=== PATIENT | female | born 1945 | race African-American/Black ===

== ENCOUNTER 2021-11-07 18:00 | Inpatient (IN) | payer BC, MEDICARE ==
[2021-11-07] MEDS ORDERED: Dextrose 50% Abboject 50 ML SYRINGE SLOW IVP PRN (19:09)
[2021-11-07] MEDS ORDERED: HumaLOG 300 UNITS/3 ML VIAL SC PRN (19:09)
[2021-11-07] MEDS ORDERED: hydrALAZINE 20 MG/ML VIAL SLOW IVP PRN (19:18)
[2021-11-07] MEDS ORDERED: Lisinopril 10 MG TAB PO SCH (19:30)
[2021-11-07] MEDS ORDERED: Polyethylene Glycol 3350 17 GM Packet PO SCH (19:45)
[2021-11-07] MEDS: Atorvastatin Calcium 40 MG TAB PO SCH (21:41)
[2021-11-08] MEDS: HumaLOG 300 UNITS/3 ML VIAL SC PRN ×2 (07:29→12:56)
[2021-11-08] MEDS: Polyethylene Glycol 3350 17 GM Packet PO SCH (08:17)
[2021-11-08] MEDS: Enoxaparin Sodium 40 MG/0.4 ML SYRINGE SC SCH (08:18)
[2021-11-08] MEDS: Amlodipine 5 MG TAB PO SCH (08:19)
[2021-11-08] MEDS: Aspirin 325 MG TAB PO SCH (08:20)
[2021-11-08] MEDS: Famotidine 20 MG TAB PO SCH (08:20)
[2021-11-08] MEDS: Lisinopril 10 MG TAB PO SCH (08:20)
[2021-11-08] MEDS: metFORMIN 500 MG TAB PO SCH ×2 (08:20→17:46)
[2021-11-08] MEDS: glipiZIDE 5 MG TAB PO SCH (08:21)
[2021-11-08] MEDS: Atorvastatin Calcium 40 MG TAB PO SCH (20:47)
[2021-11-09] MEDS: Amlodipine 5 MG TAB PO SCH (09:13)
[2021-11-09] MEDS: Famotidine 20 MG TAB PO SCH (09:13)
[2021-11-09] MEDS: Aspirin 325 MG TAB PO SCH (09:13)
[2021-11-09] MEDS: Enoxaparin Sodium 40 MG/0.4 ML SYRINGE SC SCH (09:14)
[2021-11-09] MEDS: glipiZIDE 5 MG TAB PO SCH (09:14)
[2021-11-09] MEDS: Polyethylene Glycol 3350 17 GM Packet PO SCH (09:14)
[2021-11-09] MEDS: metFORMIN 500 MG TAB PO SCH ×2 (09:14→17:28)
[2021-11-09] MEDS: Lisinopril 10 MG TAB PO SCH (09:14)
[2021-11-09] MEDS: HumaLOG 300 UNITS/3 ML VIAL SC PRN ×2 (12:29→17:28)
[2021-11-09 20:14] LABS: SARS-CoV-2 PCR by NAA Not Detected (NotDetected)
[2021-11-09] MEDS: Atorvastatin Calcium 40 MG TAB PO SCH (21:06)
[2021-11-10] MEDS: metFORMIN 500 MG TAB PO SCH ×2 (08:43→17:40)
[2021-11-10] MEDS: Famotidine 20 MG TAB PO SCH (08:43)
[2021-11-10] MEDS: Aspirin 81 mg Enteric Coated Tablet PO SCH (08:43)
[2021-11-10] MEDS: glipiZIDE 5 MG TAB PO SCH (08:43)
[2021-11-10] MEDS: Lisinopril 10 MG TAB PO SCH (08:44)
[2021-11-10] MEDS: Enoxaparin Sodium 40 MG/0.4 ML SYRINGE SC SCH (08:44)
[2021-11-10] MEDS: Amlodipine 5 MG TAB PO SCH (08:44)
[2021-11-10] MEDS: Polyethylene Glycol 3350 17 GM Packet PO SCH (08:45)
[2021-11-10] MEDS: HumaLOG 300 UNITS/3 ML VIAL SC PRN (12:22)
[2021-11-10] MEDS: Atorvastatin Calcium 40 MG TAB PO SCH (20:49)
[2021-11-11] MEDS: Polyethylene Glycol 3350 17 GM Packet PO SCH (08:27)
[2021-11-11] MEDS: Famotidine 20 MG TAB PO SCH (08:28)
[2021-11-11] MEDS: Enoxaparin Sodium 40 MG/0.4 ML SYRINGE SC SCH (08:28)
[2021-11-11] MEDS: metFORMIN 500 MG TAB PO SCH ×2 (08:28→17:49)
[2021-11-11] MEDS: Lisinopril 20 MG TAB PO SCH (08:29)
[2021-11-11] MEDS: Amlodipine 5 MG TAB PO SCH (08:29)
[2021-11-11] MEDS: glipiZIDE 5 MG TAB PO SCH (08:29)
[2021-11-11] MEDS: Aspirin 81 mg Enteric Coated Tablet PO SCH (08:29)
[2021-11-11] MEDS: HumaLOG 300 UNITS/3 ML VIAL SC PRN (12:36)
[2021-11-11] MEDS: Atorvastatin Calcium 40 MG TAB PO SCH (20:43)
[2021-11-11] MEDS: Mirtazapine 15 MG TAB PO SCH (20:43)
[2021-11-12] MEDS: Polyethylene Glycol 3350 17 GM Packet PO SCH (09:18)
[2021-11-12] MEDS: Aspirin 81 mg Enteric Coated Tablet PO SCH (09:18)
[2021-11-12] MEDS: glipiZIDE 5 MG TAB PO SCH (09:18)
[2021-11-12] MEDS: Famotidine 20 MG TAB PO SCH (09:18)
[2021-11-12] MEDS: Enoxaparin Sodium 40 MG/0.4 ML SYRINGE SC SCH (09:18)
[2021-11-12] MEDS: Amlodipine 5 MG TAB PO SCH (09:18)
[2021-11-12] MEDS: metFORMIN 500 MG TAB PO SCH ×2 (09:18→17:44)
[2021-11-12] MEDS: Lisinopril 20 MG TAB PO SCH (09:18)
[2021-11-12] MEDS: Mirtazapine 15 MG TAB PO SCH (21:09)
[2021-11-12] MEDS: Atorvastatin Calcium 40 MG TAB PO SCH (21:09)
[2021-11-13] MEDS: Enoxaparin Sodium 40 MG/0.4 ML SYRINGE SC SCH (08:40)
[2021-11-13] MEDS: glipiZIDE 5 MG TAB PO SCH (08:41)
[2021-11-13] MEDS: Amlodipine 5 MG TAB PO SCH (08:41)
[2021-11-13] MEDS: Famotidine 20 MG TAB PO SCH (08:41)
[2021-11-13] MEDS: Lisinopril 20 MG TAB PO SCH (08:41)
[2021-11-13] MEDS: metFORMIN 500 MG TAB PO SCH ×2 (08:42→16:59)
[2021-11-13] MEDS: Aspirin 81 mg Enteric Coated Tablet PO SCH (08:42)
[2021-11-13] MEDS: Polyethylene Glycol 3350 17 GM Packet PO SCH (08:46)
[2021-11-13] MEDS: Atorvastatin Calcium 40 MG TAB PO SCH (20:58)
[2021-11-13] MEDS: Mirtazapine 15 MG TAB PO SCH (20:58)
[2021-11-14] MEDS: Enoxaparin Sodium 40 MG/0.4 ML SYRINGE SC SCH (08:22)
[2021-11-14] MEDS: Lisinopril 20 MG TAB PO SCH (08:23)
[2021-11-14] MEDS: Aspirin 81 mg Enteric Coated Tablet PO SCH (08:24)
[2021-11-14] MEDS: glipiZIDE 5 MG TAB PO SCH (08:24)
[2021-11-14] MEDS: metFORMIN 500 MG TAB PO SCH ×2 (08:24→16:57)
[2021-11-14] MEDS: Amlodipine 5 MG TAB PO SCH (08:24)
[2021-11-14] MEDS: Famotidine 20 MG TAB PO SCH (08:24)
[2021-11-14] MEDS: Polyethylene Glycol 3350 17 GM Packet PO SCH (08:25)
[2021-11-14 10:11] LABS: Anion Gap 16 mmol/L (10-20); BUN (Urea Nitrogen) 39 mg/dL (9.8-20.1); Calc. Creatinine Clearance 47 mL/min (70-130); Calcium 11.4 mg/dL (7.8-10.44); Carbon Dioxide 24 mmol/L (23-31); Chloride 97 mmol/L (98-107); Glucose 187 mg/dL (83-110); Potassium 4.4 mmol/L (3.5-5.1); Sodium 133 mmol/L (136-145)
[2021-11-14] MEDS: Mirtazapine 15 MG TAB PO SCH (21:16)
[2021-11-14] MEDS: Atorvastatin Calcium 40 MG TAB PO SCH (21:16)
[2021-11-15] MEDS: Lisinopril 20 MG TAB PO SCH (08:40)
[2021-11-15] MEDS: glipiZIDE 5 MG TAB PO SCH (08:40)
[2021-11-15] MEDS: metFORMIN 500 MG TAB PO SCH ×2 (08:40→17:40)
[2021-11-15] MEDS: Amlodipine 5 MG TAB PO SCH (08:40)
[2021-11-15] MEDS: Famotidine 20 MG TAB PO SCH (08:41)
[2021-11-15] MEDS: Aspirin 81 mg Enteric Coated Tablet PO SCH (08:41)
[2021-11-15] MEDS: Enoxaparin Sodium 40 MG/0.4 ML SYRINGE SC SCH (08:41)
[2021-11-15] MEDS: Polyethylene Glycol 3350 17 GM Packet PO SCH (08:42)
[2021-11-15] MEDS: Atorvastatin Calcium 40 MG TAB PO SCH (20:00)
[2021-11-15] MEDS: Mirtazapine 15 MG TAB PO SCH (20:00)
[2021-11-16] MEDS: metFORMIN 500 MG TAB PO SCH ×2 (08:38→17:23)
[2021-11-16] MEDS: Famotidine 20 MG TAB PO SCH (08:38)
[2021-11-16] MEDS: Aspirin 81 mg Enteric Coated Tablet PO SCH (08:38)
[2021-11-16] MEDS: Lisinopril 20 MG TAB PO SCH (08:38)
[2021-11-16] MEDS: Enoxaparin Sodium 40 MG/0.4 ML SYRINGE SC SCH (08:39)
[2021-11-16] MEDS: Amlodipine 5 MG TAB PO SCH (08:39)
[2021-11-16] MEDS: glipiZIDE 5 MG TAB PO SCH (08:39)
[2021-11-16] MEDS: Polyethylene Glycol 3350 17 GM Packet PO SCH (08:40)
[2021-11-16] MEDS: Ondansetron ODT 4 MG TAB PO PRN ×2 (09:57→17:15)
[2021-11-16] MEDS: Mirtazapine 15 MG TAB PO SCH (20:30)
[2021-11-16] MEDS: Atorvastatin Calcium 40 MG TAB PO SCH (20:30)
[2021-11-16 21:14] LABS: SARS-CoV-2 PCR by NAA Not Detected (NotDetected)
[2021-11-17] MEDS: HumaLOG 300 UNITS/3 ML VIAL SC PRN ×2 (06:01→12:09)
[2021-11-17 06:21] LABS: #Basophils 0.1 thou/uL (0.0-0.2); #Eosinphils 0.2 thou/uL (0.0-0.7); #Lymphocytes 1.5 thou/uL (1.20-3.40); #Monocytes 0.7 thou/uL (0.11-0.59); #Neutrophils 8.4 thou/uL (1.40-6.50); %Basophils 0.7 % (0.0-1.0); %Eosinophils 1.5 % (0.0-10.0); %Lymphocytes 13.8 % (21.0-51.0); %Monocytes 6.6 % (0.0-10.0); %Neutrophils 77.4 % (42.0-75.0); Hemoglobin 12.3 g/dL (12.0-16.0); Mean Corpuscular HGB CONC 31.7 g/dL (32.0-36.0); Mean Corpuscular Hemoglobin 29.5 pg (27.0-31.0); Mean Corpuscular Volume 92.8 fL (78.0-98.0); Mean Platelet Volume 7.9 fL (7.4-10.4); Platelet Count 585 thou/uL (130-400); RBC Distribution Width 11.8 % (11.5-14.5); Red Blood Cell (RBC) Count 4.17 mill/uL (4.20-5.40); White Blood Cell (WBC) Count 10.8 thou/uL (4.8-10.8)
[2021-11-17 06:34] LABS: Anion Gap 15 mmol/L (10-20); BUN (Urea Nitrogen) 63 mg/dL (9.8-20.1); Calc. Creatinine Clearance 41 mL/min (70-130); Carbon Dioxide 25 mmol/L (23-31); Chloride 100 mmol/L (98-107); Glucose 160 mg/dL (83-110); Potassium 5.5 mmol/L (3.5-5.1); Sodium 134 mmol/L (136-145)
[2021-11-17] MEDS: glipiZIDE 5 MG TAB PO SCH (08:17)
[2021-11-17] MEDS: Lisinopril 20 MG TAB PO SCH (08:17)
[2021-11-17] MEDS: Aspirin 81 mg Enteric Coated Tablet PO SCH (08:17)
[2021-11-17] MEDS: Famotidine 20 MG TAB PO SCH (08:17)
[2021-11-17] MEDS: Amlodipine 5 MG TAB PO SCH (08:17)
[2021-11-17] MEDS: metFORMIN 500 MG TAB PO SCH ×2 (08:17→17:22)
[2021-11-17] MEDS: Enoxaparin Sodium 40 MG/0.4 ML SYRINGE SC SCH (08:18)
[2021-11-17] MEDS: Polyethylene Glycol 3350 17 GM Packet PO SCH (08:26)
[2021-11-17] MEDS: Sodium Chloride 0.9% 500 ML IV SCH ×4 (11:15→12:07)
[2021-11-17] MEDS: Ondansetron ODT 4 MG TAB PO PRN (11:40)
[2021-11-17] MEDS: Sodium Chloride 0.9% 1,000 ML IV SCH (11:55)
[2021-11-17 16:46] LABS: Anion Gap 15 mmol/L (10-20); BUN (Urea Nitrogen) 61 mg/dL (9.8-20.1); Calc. Creatinine Clearance 38 mL/min (70-130); Calcium 10.8 mg/dL (7.8-10.44); Carbon Dioxide 24 mmol/L (23-31); Chloride 102 mmol/L (98-107); Glucose 115 mg/dL (83-110); Potassium 4.9 mmol/L (3.5-5.1); Sodium 136 mmol/L (136-145)
[2021-11-17] MEDS: Atorvastatin Calcium 40 MG TAB PO SCH (20:35)
[2021-11-17] MEDS: Mirtazapine 15 MG TAB PO SCH (20:35)
[2021-11-18] MEDS: Sodium Chloride 0.9% 1,000 ML IV SCH ×2 (01:30→11:59)
[2021-11-18 06:33] LABS: Anion Gap 10 mmol/L (10-20)
[2021-11-18 06:40] LABS: #Basophils 0.1 thou/uL (0.0-0.2); #Eosinphils 0.1 thou/uL (0.0-0.7); #Lymphocytes 1.2 thou/uL (1.20-3.40); #Monocytes 0.5 thou/uL (0.11-0.59); #Neutrophils 5.4 thou/uL (1.40-6.50); %Basophils 0.7 % (0.0-1.0); %Eosinophils 1.9 % (0.0-10.0); %Lymphocytes 16.2 % (21.0-51.0); %Monocytes 7.1 % (0.0-10.0); %Neutrophils 74.1 % (42.0-75.0); Hemoglobin 9.3 g/dL (12.0-16.0); Mean Corpuscular HGB CONC 31.9 g/dL (32.0-36.0); Mean Corpuscular Hemoglobin 29.8 pg (27.0-31.0); Mean Corpuscular Volume 93.6 fL (78.0-98.0); Mean Platelet Volume 7.2 fL (7.4-10.4); Platelet Count 413 thou/uL (130-400); RBC Distribution Width 12.2 % (11.5-14.5); Red Blood Cell (RBC) Count 3.13 mill/uL (4.20-5.40); White Blood Cell (WBC) Count 7.3 thou/uL (4.8-10.8)
[2021-11-18 06:45] LABS: Calcium 7.1 mg/dL (7.8-10.44)
[2021-11-18 06:46] LABS: BUN (Urea Nitrogen) 47 mg/dL (9.8-20.1); Calc. Creatinine Clearance 55 mL/min (70-130); Carbon Dioxide 18 mmol/L (23-31); Chloride 116 mmol/L (98-107); Glucose 117 mg/dL (83-110); Potassium 3.6 mmol/L (3.5-5.1); Sodium 140 mmol/L (136-145)
[2021-11-18] MEDS: glipiZIDE 5 MG TAB PO SCH (07:45)
[2021-11-18] MEDS: Polyethylene Glycol 3350 17 GM Packet PO SCH (09:01)
[2021-11-18] MEDS: Enoxaparin Sodium 40 MG/0.4 ML SYRINGE SC SCH (09:01)
[2021-11-18] MEDS: Famotidine 20 MG TAB PO SCH (09:02)
[2021-11-18] MEDS: Amlodipine 5 MG TAB PO SCH (09:02)
[2021-11-18] MEDS: metFORMIN 500 MG TAB PO SCH ×2 (09:02→18:02)
[2021-11-18] MEDS: Lisinopril 20 MG TAB PO SCH (09:03)
[2021-11-18] MEDS: Aspirin 81 mg Enteric Coated Tablet PO SCH (09:03)
[2021-11-18] MEDS: HumaLOG 300 UNITS/3 ML VIAL SC PRN (13:09)
[2021-11-18] MEDS: Atorvastatin Calcium 40 MG TAB PO SCH (20:52)
[2021-11-19] MEDS: Aspirin 81 mg Enteric Coated Tablet PO SCH (09:00)
[2021-11-19] MEDS: Polyethylene Glycol 3350 17 GM Packet PO SCH (09:00)
[2021-11-19] MEDS: Lisinopril 20 MG TAB PO SCH (09:00)
[2021-11-19] MEDS: glipiZIDE 5 MG TAB PO SCH (09:00)
[2021-11-19] MEDS: metFORMIN 500 MG TAB PO SCH ×2 (09:00→17:56)
[2021-11-19] MEDS: Amlodipine 5 MG TAB PO SCH (09:00)
[2021-11-19] MEDS: Enoxaparin Sodium 40 MG/0.4 ML SYRINGE SC SCH (09:01)
[2021-11-19] MEDS ORDERED: Bisacodyl 10 MG SUPP PR PRN (14:22)
[2021-11-19] MEDS ORDERED: Senokot S 8.6-50 MG TAB PO PRN (14:22)
[2021-11-19] MEDS: Atorvastatin Calcium 40 MG TAB PO SCH (20:44)
[2021-11-20 06:17] LABS: #Basophils 0.1 thou/uL (0.0-0.2); #Eosinphils 0.1 thou/uL (0.0-0.7); #Lymphocytes 1.8 thou/uL (1.20-3.40); #Monocytes 0.9 thou/uL (0.11-0.59); #Neutrophils 8.1 thou/uL (1.40-6.50); %Basophils 0.6 % (0.0-1.0); %Eosinophils 1.3 % (0.0-10.0); %Lymphocytes 16.7 % (21.0-51.0); %Monocytes 7.8 % (0.0-10.0); %Neutrophils 73.6 % (42.0-75.0); Hemoglobin 11.4 g/dL (12.0-16.0); Mean Corpuscular HGB CONC 32.1 g/dL (32.0-36.0); Mean Corpuscular Volume 93.5 fL (78.0-98.0); Mean Platelet Volume 7.7 fL (7.4-10.4); Platelet Count 494 thou/uL (130-400); RBC Distribution Width 12.1 % (11.5-14.5); Red Blood Cell (RBC) Count 3.81 mill/uL (4.20-5.40)
[2021-11-20 06:40] LABS: ALT (SGPT) 9 U/L (8-55); AST (SGOT) 17 U/L (5-34); Albumin 3.4 g/dL (3.4-4.8); Alkaline Phosphatase 111 U/L (40-110); Anion Gap 13 mmol/L (10-20); BUN (Urea Nitrogen) 43 mg/dL (9.8-20.1); Bilirubin, Total 0.4 mg/dL (0.2-1.2); Calc. Creatinine Clearance 52 mL/min (70-130); Carbon Dioxide 25 mmol/L (23-31); Chloride 107 mmol/L (98-107); Globulin 4.1 g/dL (2.4-3.5); Glucose 154 mg/dL (83-110); Potassium 5.1 mmol/L (3.5-5.1); Protein, Total 7.5 g/dL (5.8-8.1); Sodium 140 mmol/L (136-145)
[2021-11-20] MEDS: metFORMIN 500 MG TAB PO SCH ×2 (09:38→17:53)
[2021-11-20] MEDS: Amlodipine 5 MG TAB PO SCH (09:38)
[2021-11-20] MEDS: Aspirin 81 mg Enteric Coated Tablet PO SCH (09:38)
[2021-11-20] MEDS: Polyethylene Glycol 3350 17 GM Packet PO SCH (09:38)
[2021-11-20] MEDS: Lisinopril 20 MG TAB PO SCH (09:38)
[2021-11-20] MEDS: Enoxaparin Sodium 40 MG/0.4 ML SYRINGE SC SCH (09:38)
[2021-11-20] MEDS: Atorvastatin Calcium 40 MG TAB PO SCH (21:23)
[2021-11-21 07:40] LABS: Chloride 108 mmol/L (98-107); Potassium 4.9 mmol/L (3.5-5.1); Sodium 140 mmol/L (136-145)
[2021-11-21 07:41] LABS: BUN (Urea Nitrogen) 48 mg/dL (9.8-20.1); Calc. Creatinine Clearance 54 mL/min (70-130); Calcium 10.5 mg/dL (7.8-10.44); Carbon Dioxide 24 mmol/L (23-31); Glucose 150 mg/dL (83-110)
[2021-11-21 07:42] LABS: Anion Gap 13 mmol/L (10-20)
[2021-11-21 07:54] LABS: #Basophils 0.1 thou/uL (0.0-0.2); #Eosinphils 0.3 thou/uL (0.0-0.7); #Lymphocytes 1.9 thou/uL (1.20-3.40); #Monocytes 0.6 thou/uL (0.11-0.59); #Neutrophils 7.3 thou/uL (1.40-6.50); %Basophils 1.1 % (0.0-1.0); %Eosinophils 2.5 % (0.0-10.0); %Lymphocytes 18.9 % (21.0-51.0); %Monocytes 6.2 % (0.0-10.0); %Neutrophils 71.4 % (42.0-75.0); Hemoglobin 10.7 g/dL (12.0-16.0); Mean Corpuscular HGB CONC 31.6 g/dL (32.0-36.0); Mean Corpuscular Hemoglobin 29.8 pg (27.0-31.0); Mean Corpuscular Volume 94.3 fL (78.0-98.0); Mean Platelet Volume 7.3 fL (7.4-10.4); Platelet Count 425 thou/uL (130-400); White Blood Cell (WBC) Count 10.2 thou/uL (4.8-10.8)
[2021-11-21] MEDS: Enoxaparin Sodium 40 MG/0.4 ML SYRINGE SC SCH (08:14)
[2021-11-21] MEDS: metFORMIN 500 MG TAB PO SCH ×2 (08:14→18:19)
[2021-11-21] MEDS: Aspirin 81 mg Enteric Coated Tablet PO SCH (08:14)
[2021-11-21] MEDS: Amlodipine 5 MG TAB PO SCH (08:15)
[2021-11-21] MEDS: Lisinopril 20 MG TAB PO SCH (08:17)
[2021-11-21] MEDS: Polyethylene Glycol 3350 17 GM Packet PO SCH (08:18)
[2021-11-21] MEDS: Atorvastatin Calcium 40 MG TAB PO SCH (21:33)
[2021-11-22] MEDS: Amlodipine 5 MG TAB PO SCH (08:25)
[2021-11-22] MEDS: Aspirin 81 mg Enteric Coated Tablet PO SCH (08:25)
[2021-11-22] MEDS: Enoxaparin Sodium 40 MG/0.4 ML SYRINGE SC SCH (08:25)
[2021-11-22] MEDS: metFORMIN 500 MG TAB PO SCH ×2 (08:25→17:44)
[2021-11-22] MEDS: Polyethylene Glycol 3350 17 GM Packet PO SCH (08:25)
[2021-11-22] MEDS: Lisinopril 20 MG TAB PO SCH (08:26)
[2021-11-22] MEDS: Atorvastatin Calcium 40 MG TAB PO SCH (20:43)
[2021-11-23] MEDS: Aspirin 81 mg Enteric Coated Tablet PO SCH (08:21)
[2021-11-23] MEDS: Enoxaparin Sodium 40 MG/0.4 ML SYRINGE SC SCH (08:21)
[2021-11-23] MEDS: Polyethylene Glycol 3350 17 GM Packet PO SCH (08:21)
[2021-11-23] MEDS: metFORMIN 500 MG TAB PO SCH ×2 (08:21→17:37)
[2021-11-23] MEDS: Amlodipine 5 MG TAB PO SCH (08:36)
[2021-11-23] MEDS: Lisinopril 20 MG TAB PO SCH (08:36)
[2021-11-23] MEDS: Atorvastatin Calcium 40 MG TAB PO SCH (20:42)
[2021-11-24] MEDS: Aspirin 81 mg Enteric Coated Tablet PO SCH (09:05)
[2021-11-24] MEDS: Lisinopril 20 MG TAB PO SCH (09:05)
[2021-11-24] MEDS: Amlodipine 5 MG TAB PO SCH (09:06)
[2021-11-24] MEDS: metFORMIN 500 MG TAB PO SCH ×2 (09:06→16:53)
[2021-11-24] MEDS: Megestrol Acetate 800 MG/20 ML UDCUP PO SCH (09:07)
[2021-11-24] MEDS: Polyethylene Glycol 3350 17 GM Packet PO SCH (09:07)
[2021-11-24] MEDS: Enoxaparin Sodium 40 MG/0.4 ML SYRINGE SC SCH (09:08)
[2021-11-24 16:09] LABS: SARS-CoV-2 PCR by NAA Not Detected (NotDetected)
[2021-11-24] MEDS: Atorvastatin Calcium 40 MG TAB PO SCH (21:12)
[2021-11-25 06:50] LABS: Anion Gap 17 mmol/L (10-20); BUN (Urea Nitrogen) 41 mg/dL (9.8-20.1); Calc. Creatinine Clearance 64 mL/min (70-130); Calcium 10.9 mg/dL (7.8-10.44); Carbon Dioxide 22 mmol/L (23-31); Chloride 108 mmol/L (98-107); Glucose 133 mg/dL (83-110); Potassium 4.7 mmol/L (3.5-5.1); Sodium 142 mmol/L (136-145)
[2021-11-25] MEDS: Enoxaparin Sodium 40 MG/0.4 ML SYRINGE SC SCH (08:57)
[2021-11-25] MEDS: Megestrol Acetate 800 MG/20 ML UDCUP PO SCH (08:58)
[2021-11-25] MEDS: metFORMIN 500 MG TAB PO SCH ×2 (08:59→18:31)
[2021-11-25] MEDS: Lisinopril 20 MG TAB PO SCH (08:59)
[2021-11-25] MEDS: Amlodipine 5 MG TAB PO SCH (08:59)
[2021-11-25] MEDS: Aspirin 81 mg Enteric Coated Tablet PO SCH (09:00)
[2021-11-25] MEDS: Polyethylene Glycol 3350 17 GM Packet PO SCH (09:00)
[2021-11-25] MEDS: Atorvastatin Calcium 40 MG TAB PO SCH (21:32)
[2021-11-26] MEDS: metFORMIN 500 MG TAB PO SCH ×2 (08:56→17:46)
[2021-11-26] MEDS: Aspirin 81 mg Enteric Coated Tablet PO SCH (08:56)
[2021-11-26] MEDS: Enoxaparin Sodium 40 MG/0.4 ML SYRINGE SC SCH (08:57)
[2021-11-26] MEDS: Polyethylene Glycol 3350 17 GM Packet PO SCH (08:57)
[2021-11-26] MEDS: Megestrol Acetate 800 MG/20 ML UDCUP PO SCH (08:57)
[2021-11-26] MEDS: Amlodipine 5 MG TAB PO SCH (08:58)
[2021-11-26] MEDS: Lisinopril 20 MG TAB PO SCH (08:58)
[2021-11-26] MEDS: Atorvastatin Calcium 40 MG TAB PO SCH (20:57)
[2021-11-27] MEDS: Aspirin 81 mg Enteric Coated Tablet PO SCH (08:58)
[2021-11-27] MEDS: metFORMIN 500 MG TAB PO SCH ×2 (08:58→17:44)
[2021-11-27] MEDS: Polyethylene Glycol 3350 17 GM Packet PO SCH (08:59)
[2021-11-27] MEDS: Lisinopril 20 MG TAB PO SCH (08:59)
[2021-11-27] MEDS: Amlodipine 5 MG TAB PO SCH (08:59)
[2021-11-27] MEDS: Megestrol Acetate 800 MG/20 ML UDCUP PO SCH (09:00)
[2021-11-27] MEDS: Enoxaparin Sodium 40 MG/0.4 ML SYRINGE SC SCH (09:00)
[2021-11-27] MEDS: Atorvastatin Calcium 40 MG TAB PO SCH (20:32)
[2021-11-28] MEDS: Enoxaparin Sodium 40 MG/0.4 ML SYRINGE SC SCH (08:41)
[2021-11-28] MEDS: metFORMIN 500 MG TAB PO SCH ×2 (08:42→18:04)
[2021-11-28] MEDS: Aspirin 81 mg Enteric Coated Tablet PO SCH (08:42)
[2021-11-28] MEDS: Megestrol Acetate 800 MG/20 ML UDCUP PO SCH (08:42)
[2021-11-28] MEDS: Lisinopril 20 MG TAB PO SCH (08:42)
[2021-11-28] MEDS: Amlodipine 10 MG TAB PO SCH (08:43)
[2021-11-28] MEDS: Polyethylene Glycol 3350 17 GM Packet PO SCH (08:43)
[2021-11-28] MEDS: Atorvastatin Calcium 40 MG TAB PO SCH (20:32)
[2021-11-29] MEDS: Amlodipine 10 MG TAB PO SCH (09:25)
[2021-11-29] MEDS: Megestrol Acetate 800 MG/20 ML UDCUP PO SCH (09:25)
[2021-11-29] MEDS: Enoxaparin Sodium 40 MG/0.4 ML SYRINGE SC SCH (09:25)
[2021-11-29] MEDS: metFORMIN 500 MG TAB PO SCH ×2 (09:25→19:10)
[2021-11-29] MEDS: Polyethylene Glycol 3350 17 GM Packet PO SCH (09:26)
[2021-11-29] MEDS: Aspirin 81 mg Enteric Coated Tablet PO SCH (09:26)
[2021-11-29] MEDS: Lisinopril 20 MG TAB PO SCH (09:26)
[2021-11-29] MEDS ORDERED: Loperamide HCl 2 MG CAP PO PRN (19:15)
[2021-11-29] MEDS ORDERED: Loperamide HCl 2 MG CAP PO SCH (19:15)
[2021-11-29] MEDS: Atorvastatin Calcium 40 MG TAB PO SCH (20:31)
[2021-11-30 05:20] VITALS: BMI 28.8
[2021-11-30] MEDS: Amlodipine 10 MG TAB PO SCH (09:05)
[2021-11-30] MEDS: metFORMIN 500 MG TAB PO SCH ×2 (09:05→18:51)
[2021-11-30] MEDS: Lisinopril 20 MG TAB PO SCH (09:06)
[2021-11-30] MEDS: Aspirin 81 mg Enteric Coated Tablet PO SCH (09:07)
[2021-11-30] MEDS: Megestrol Acetate 800 MG/20 ML UDCUP PO SCH (09:08)
[2021-11-30] MEDS: Polyethylene Glycol 3350 17 GM Packet PO SCH (09:08)
[2021-11-30] MEDS: Enoxaparin Sodium 40 MG/0.4 ML SYRINGE SC SCH (09:08)
[2021-11-30] MEDS: Ondansetron ODT 4 MG TAB PO PRN (16:13)
[2021-11-30] MEDS: Atorvastatin Calcium 40 MG TAB PO SCH (20:38)
[2021-12-01] MEDS: Aspirin 81 mg Enteric Coated Tablet PO SCH (09:23)
[2021-12-01] MEDS: Lisinopril 20 MG TAB PO SCH (09:23)
[2021-12-01] MEDS: Enoxaparin Sodium 40 MG/0.4 ML SYRINGE SC SCH (09:24)
[2021-12-01] MEDS: metFORMIN 500 MG TAB PO SCH ×2 (09:24→20:34)
[2021-12-01] MEDS: Amlodipine 10 MG TAB PO SCH (09:24)
[2021-12-01] MEDS: Polyethylene Glycol 3350 17 GM Packet PO SCH (09:25)
[2021-12-01] MEDS: Megestrol Acetate 800 MG/20 ML UDCUP PO SCH (09:25)
[2021-12-01 16:01] LABS: SARS-CoV-2 PCR by NAA Not Detected (NotDetected)
[2021-12-01] MEDS: Atorvastatin Calcium 40 MG TAB PO SCH (20:33)
[2021-12-02 06:44] LABS: #Basophils 0.1 thou/uL (0.0-0.2); #Eosinphils 0.2 thou/uL (0.0-0.7); #Monocytes 0.5 thou/uL (0.11-0.59); %Eosinophils 3.1 % (0.0-10.0); %Lymphocytes 30.1 % (21.0-51.0); %Monocytes 6.8 % (0.0-10.0); Hemoglobin 10.3 g/dL (12.0-16.0); Mean Corpuscular HGB CONC 31.7 g/dL (32.0-36.0); Mean Corpuscular Hemoglobin 29.5 pg (27.0-31.0); Mean Corpuscular Volume 93.2 fL (78.0-98.0); Mean Platelet Volume 8.3 fL (7.4-10.4); Platelet Count 294 thou/uL (130-400); RBC Distribution Width 12.5 % (11.5-14.5); Red Blood Cell (RBC) Count 3.49 mill/uL (4.20-5.40); White Blood Cell (WBC) Count 6.7 thou/uL (4.8-10.8)
[2021-12-02 06:59] LABS: Anion Gap 15 mmol/L (10-20); BUN (Urea Nitrogen) 26 mg/dL (9.8-20.1); Calc. Creatinine Clearance 60 mL/min (70-130); Calcium 10.2 mg/dL (7.8-10.44); Carbon Dioxide 25 mmol/L (23-31); Chloride 105 mmol/L (98-107); Glucose 113 mg/dL (83-110); Potassium 4.7 mmol/L (3.5-5.1); Sodium 140 mmol/L (136-145)
[2021-12-02] MEDS: Amlodipine 10 MG TAB PO SCH (09:29)
[2021-12-02] MEDS: Megestrol Acetate 800 MG/20 ML UDCUP PO SCH (09:29)
[2021-12-02] MEDS: metFORMIN 500 MG TAB PO SCH ×2 (09:30→17:15)
[2021-12-02] MEDS: Enoxaparin Sodium 40 MG/0.4 ML SYRINGE SC SCH (09:30)
[2021-12-02] MEDS: Lisinopril 20 MG TAB PO SCH (09:30)
[2021-12-02] MEDS: Aspirin 81 mg Enteric Coated Tablet PO SCH (09:30)
[2021-12-02] MEDS: Polyethylene Glycol 3350 17 GM Packet PO SCH (09:32)
[2021-12-02] MEDS: Atorvastatin Calcium 40 MG TAB PO SCH (20:54)
[2021-12-03] MEDS: Aspirin 81 mg Enteric Coated Tablet PO SCH (09:56)
[2021-12-03] MEDS: Megestrol Acetate 800 MG/20 ML UDCUP PO SCH (09:57)
[2021-12-03] MEDS: Enoxaparin Sodium 40 MG/0.4 ML SYRINGE SC SCH (09:57)
[2021-12-03] MEDS: metFORMIN 500 MG TAB PO SCH ×2 (09:57→17:43)
[2021-12-03] MEDS: Amlodipine 10 MG TAB PO SCH (09:58)
[2021-12-03] MEDS: Lisinopril 20 MG TAB PO SCH (09:58)
[2021-12-03] MEDS: Polyethylene Glycol 3350 17 GM Packet PO SCH (09:59)
[2021-12-03 19:29] VITALS: TEMP 97.1
[2021-12-03] MEDS: Atorvastatin Calcium 40 MG TAB PO SCH (20:36)
[2021-12-04] MEDS: Lisinopril 20 MG TAB PO SCH (09:48)
[2021-12-04] MEDS: metFORMIN 500 MG TAB PO SCH (09:48)
[2021-12-04] MEDS: Amlodipine 10 MG TAB PO SCH (09:49)
[2021-12-04] MEDS: Aspirin 81 mg Enteric Coated Tablet PO SCH (09:49)
[2021-12-04] MEDS: Enoxaparin Sodium 40 MG/0.4 ML SYRINGE SC SCH (09:49)
[2021-12-04 09:50] VITALS: BP 132/63
[2021-12-04] MEDS: Megestrol Acetate 800 MG/20 ML UDCUP PO SCH (09:50)
[2021-12-04] MEDS: Polyethylene Glycol 3350 17 GM Packet PO SCH (09:53)
[2021-12-04] MEDS: Ondansetron ODT 4 MG TAB PO PRN (12:17)
== END 2021-12-04 12:20 | DRG 57 ==
LOC: NAV ACUTE 19:33
PROVIDERS: ADMIT Family Medicine; ATTEND Family Medicine
DX: I69.354 Hemiplegia and hemiparesis following cerebral infarction affecting left non-dominant side (principal); I50.32 Chronic diastolic (congestive) heart failure; I13.0 Hypertensive heart and chronic kidney disease with heart failure and stage 1 through stage 4 chronic kidney disease, or unspecified chronic kidney disease; E78.5 Hyperlipidemia, unspecified; N18.32 Chronic kidney disease, stage 3b; E11.22 Type 2 diabetes mellitus with diabetic chronic kidney disease; Z20.822 Contact with and (suspected) exposure to COVID-19; E83.52 Hypercalcemia; R11.0 Nausea; E87.5 Hyperkalemia; K59.00 Constipation, unspecified; I69.392 Facial weakness following cerebral infarction
CPT/HCPCS: 36415; 36416; 74018; 80048; 80053; 85025; J1650; J1815; J7030; J7050; Q0162; U0003; U0005

== ENCOUNTER 2022-04-10 16:02 | Emergency (ER) | payer MEDICARE ==
[2022-04-10 16:36] LABS: #Basophils 0.1 thou/uL (0.0-0.2); #Eosinphils 0.1 thou/uL (0.0-0.7); #Lymphocytes 0.9 thou/uL (1.20-3.40); #Monocytes 0.5 thou/uL (0.11-0.59); #Neutrophils 6.3 thou/uL (1.40-6.50); %Basophils 0.8 % (0.0-1.0); %Eosinophils 1.3 % (0.0-10.0); %Lymphocytes 11.7 % (21.0-51.0); %Monocytes 5.8 % (0.0-10.0); %Neutrophils 80.4 % (42.0-75.0); Hemoglobin 11.3 g/dL (12.0-16.0); Mean Corpuscular HGB CONC 30.3 g/dL (32.0-36.0); Mean Corpuscular Hemoglobin 29.1 pg (27.0-31.0); Mean Platelet Volume 11.6 fL (7.4-10.4); Platelet Count 299 thou/uL (130-400); RBC Distribution Width 15.6 % (11.5-14.5); Red Blood Cell (RBC) Count 3.88 mill/uL (4.20-5.40); White Blood Cell (WBC) Count 7.9 thou/uL (4.8-10.8)
[2022-04-10 16:51] LABS: ALT (SGPT) 9 U/L (8-55); AST (SGOT) 13 U/L (5-34); Albumin 3.5 g/dL (3.4-4.8); Alkaline Phosphatase 82 U/L (40-110); Anion Gap 19 mmol/L (10-20); BUN (Urea Nitrogen) 16 mg/dL (9.8-20.1); Bilirubin, Total 0.3 mg/dL (0.2-1.2); CK (CPK) 12 U/L (29-168); Calc. Creatinine Clearance 0 mL/min (70-130); Calcium 10.7 mg/dL (7.8-10.44); Carbon Dioxide 25 mmol/L (23-31); Chloride 108 mmol/L (98-107); Estimated GFR 88; Globulin 3.7 g/dL (2.4-3.5); Glucose 157 mg/dL (83-110); Lipase 18 U/L (8-78); Potassium 4.1 mmol/L (3.5-5.1); Protein, Total 7.2 g/dL (5.8-8.1); Sodium 148 mmol/L (136-145)
[2022-04-10] MEDS ORDERED: Cefepime 2 GM VIAL ONE (16:51)
[2022-04-10] MEDS ORDERED: Sodium Chloride 0.9% 100 ML ONE (16:51)
[2022-04-10 17:06] LABS: Bilirubin Negative (Negative); Blood, Urine Negative (Negative); Glucose, Urine (Dipstick) Negative (Negative); Ketone, Urine 15 mg/dL (Negative); Leukocyte Negative (Negative); Nitrite Negative (Negative); Protein, Urine (Dipstick) Trace mg/dL (Neg-Trace); Urobilinogen 0.2 mg/dL (Less than 2)
[2022-04-10 17:09] LABS: Clarity Hazy (Clear)
[2022-04-10 17:37] LABS: SARS-CoV-2 NAA Rapid Test DETECTED (NotDetected)
[2022-04-10] MEDS ORDERED: Vancomycin HCl 500 MG VIAL ONE (17:55)
[2022-04-10] MEDS ORDERED: Sodium Chloride 0.9% 500 ML ONE (17:55)
== END 2022-04-10 19:46 | disposition short-term general hospital (02) ==
LOC: NAV ERS 16:02
DX: U07.1 COVID-19 (principal); L03.116 Cellulitis of left lower limb; I10 Essential (primary) hypertension
CPT/HCPCS: 51701; 71045; 80053; 81003; 82550; 83605; 83690; 84484; 85025; 87040; 87086; 93005; 96365; 96367; J0692; J3370; J3490; J7030; U0002

== ENCOUNTER 2023-04-11 16:53 | Emergency (ER) | payer MEDICARE, SELFPAY ==
[2023-04-11] MEDS ORDERED: Sodium Chloride 0.9% 0 ML ONE (17:49)
[2023-04-11 18:03] LABS: #Eosinphils 0.3 thou/uL (0.0-0.7); #Lymphocytes 2.1 thou/uL (1.20-3.40); #Monocytes 0.3 thou/uL (0.11-0.59); #Neutrophils 3.4 thou/uL (1.40-6.50); %Basophils 0.5 % (0.0-1.0); %Eosinophils 4.3 % (0.0-10.0); %Lymphocytes 34.9 % (21.0-51.0); %Monocytes 5.1 % (0.0-10.0); %Neutrophils 55.2 % (42.0-75.0); Hematocrit 36.5 % (36.0-47.0); Hemoglobin 11.4 g/dL (12.0-16.0); Mean Corpuscular HGB CONC 31.3 g/dL (32.0-36.0); Mean Corpuscular Hemoglobin 28.1 pg (27.0-31.0); Mean Corpuscular Volume 90.1 fl (78.0-98.0); Mean Platelet Volume 12.6 fL (7.4-10.4); Platelet Count 217 10x3/uL (130-400); RBC Distribution Width 13.6 % (11.5-14.5); Red Blood Cell (RBC) Count 4.06 mill/uL (4.20-5.40); White Blood Cell (WBC) Count 6.1 10x3/uL (4.8-10.8)
[2023-04-11 18:12] LABS: ALT (SGPT) 29 U/L (8-55); AST (SGOT) 33 U/L (5-34); Albumin 3.6 g/dL (3.4-4.8); Alkaline Phosphatase 120 U/L (40-110); Anion Gap 15 mmol/L (10-20); BUN (Urea Nitrogen) 21 mg/dL (9.8-20.1); Bilirubin, Total 0.4 mg/dL (0.2-1.2); Calc. Creatinine Clearance 0 mL/min (70-130); Calcium 10.3 mg/dL (7.8-10.44); Carbon Dioxide 25 mmol/L (23-31); Chloride 107 mmol/L (98-107); Estimated GFR 92; Globulin 3.8 g/dL (2.4-3.5); Glucose 148 mg/dL (83-110); Lipase 28 U/L (8-78); Magnesium 1.7 mg/dL (1.6-2.6); Potassium 3.9 mmol/L (3.5-5.1); Protein, Total 7.4 g/dL (5.8-8.1); Sodium 143 mmol/L (136-145)
== END 2023-04-11 20:00 | disposition home or self-care (01) ==
LOC: NAV ERS 16:53
DX: E86.0 Dehydration (principal); I10 Essential (primary) hypertension
CPT/HCPCS: 80053; 83690; 83735; 85025; 99284; J7030